=== PATIENT | male | born 1975 | race Caucasian/White ===

== ENCOUNTER 2017-12-01 18:42 | Emergency (ER) | payer OTHER ==
[~2017-12-01] VITALS: Ht 188 cm; Wt 99.8 kg
[~2017-12-01 18:42] MED LIST: ALEVE220 MG PO; AMBIEN 10 MG TA10 MG; AMOXICILLIN 50500 MG PO; ANAPROX DS550 MG PO; CYCLOBENZAPRINE5 MG PO; CYMBALTA60 MG PO; DARVOCET-N 1001 EAC1 PO; DIAZEPAM 5 MG5 M1; EFFEXOR XR75 MG PO; EFFEXOR75 MG PO; FLECTOR PATCH1 EA TP; FLEXERIL PO; GABAPENTIN 100100 MG PO; HYDROCODONE-AP1 EAC6 PO; IBUPROFEN 800800 M1 PO; KEFLEX250 MG PO; LAMISIL250 MG PO; MEDROLDOSEPACK PO; MULTIVITAMINS; NAPROSYN500 MG PO; NEURONTIN 300300 M1; NOHOMEMEDICATIONS; NORCO 10-325 T1 EACH; NORCO 5-325 TA1 EAC1 PO; NORCO 5-325 TA1 EACH PO; OXYCODONE HCL15 MG PO; PERCOCET 10-321 EACH PO; PERCOCET 5-3251 EACH PO; PERCOCET PO; PHENERGAN 25 MG25 M1 PO; PREDNISONE 10 M10 MG PO; ROBAXIN 750 MG750 MG PO; ROBAXIN500 MG PO; TORADOL 10 MG T10 MG PO; TRAZODONE HCL100 MG PO; VICOPROFEN 2001 EACH PO; WELLBUTRIN XL150 MG PO
[2017-12-01 19:06] VITALS: BP 138/84
[2017-12-01] MEDS ORDERED: PERCOCET 10-321 EACH PO (19:19)
== END 2017-12-01 19:40 | disposition left against medical advice (07) ==
LOC: M.ERS 18:42
DX: G89.29 Other chronic pain (principal); M54.5 Low back pain; Z90.89 Acquired absence of other organs; Z88.5 Allergy status to narcotic agent; Z88.6 Allergy status to analgesic agent; Z88.0 Allergy status to penicillin